=== PATIENT | female | born 2000 | race Caucasian/White ===

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

== ENCOUNTER → 2018-06-01 | Outpatient (CLI) | payer OTHER | END | disposition home or self-care (01) | LOC: RAD 13:50 | DX: N20.0 Calculus of kidney (principal); R10.9 Unspecified abdominal pain ==

== ENCOUNTER → 2019-01-06 | Outpatient (CLI) | payer OTHER | END | disposition home or self-care (01) | LOC: RAD 12:10 | DX: M25.561 Pain in right knee (principal) ==

== ENCOUNTER 2019-06-09 14:16 | Inpatient (IN) | payer OTHER ==
[~2019-06-09] VITALS: Ht 160 cm; Wt 52.8 kg
[2019-06-09 14:16] VITALS: BP 135/90
[2019-06-09 15:14] LABS: BASO % 0.7 % (0.0-1.0); EOS # 0.1 10*3/uL (0.0-0.4); EOS % 2.5 % (1.0-4.0); HEMATOCRIT 44.1 % (37.0-47.0); HEMOGLOBIN 15.1 g/dl (12.0-16.0); LYMPH # 1.5 10*3/uL (1.3-4.4); LYMPH % 34.3 % (27.0-41.0); MEAN CORPUSCULAR HGB 30.8 pg (27.0-31.0); MEAN CORPUSCULAR HGB CONC 34.2 g/dl (33.0-37.0); MEAN PLATELET VOLUME 9.2 fl (9.6-12.3); MONO # 0.4 10*3/uL (0.1-1.0); MONO % 9.2 % (3.0-9.0); NEUT # 2.3 10*3/uL (2.3-7.9); NEUT % 53.1 % (47.0-73.0); PLATELET COUNT AUTOMATED 213 10*3/uL (130-400); RED CELL DISTRI WIDTH 11.7 % (0-14.5); WHITE BLOOD COUNT 4.4 10*3/uL (4.8-10.8)
[2019-06-09 15:37] LABS: ALBUMIN 3.9 gm/dl (3.1-4.5); ALKALINE PHOSPHATASE 82 U/L (45-117); BUN 6 mg/dl (7-24); CHLORIDE 107 mmol/L (98-107); CREATININE 0.69 mg/dL (0.55-1.02); POTASSIUM 3.4 mmol/L (3.5-5.1); SGOT/AST 19 IU/L (3-35); SGPT/ALT 26 U/L (12-78); SODIUM 140 mmol/L (136-145); TOTAL PROTEIN 7.2 gm/dL (6.4-8.2)
[2019-06-09 15:43] LABS: BILIRUBIN NEGATIVE (NEGATIVE); BLOOD 3+ (NEGATIVE); CLARITY CLEAR (CLEAR); COLOR YELLOW (YELLOW); GLUCOSE NEGATIVE (NEGATIVE); KETONE NEGATIVE (NEGATIVE); LEUKO ESTERASE 1+ (NEGATIVE); NITRITE POSITIVE (NEGATIVE)
[2019-06-09 16:00] VITALS: BP 92/64
[2019-06-09 16:06] LABS: EPITHELIAL CELLS 41-50
[2019-06-09 16:07] LABS: BACTERIA 2+
--- NOTE | 2019-06-09 18:02 | NUR ---
PT STATES PAIN HAS DULLED BUT IT CONTINUES TO SHOOT DOWN RT LEG. RN NOTIFIED.
[2019-06-09 18:43] VITALS: BP 102/61
--- NOTE | 2019-06-09 18:44 | NUR ---
PATIENT STATES THAT SHE IS HAVING R LEG PAIN DR LAMAS AWARE.
--- NOTE | 2019-06-09 19:00 | NUR ---
PATIENT STATES THAT THE FIRST KETAMINE INFUSION DID NOT HELP THE PAIN.
--- NOTE | 2019-06-09 19:02 | NUR ---
BEDSIDE REPORT GIVEN TO SKY RN AT THIS TIME. ALO VELEZ TO TAKE PATIENT UPSTAIRS.
[2019-06-09 19:07] VITALS: BP 103/52
--- NOTE | 2019-06-09 19:07 | NUR ---
A 18, admitted to , under the services of MIGUELINA Shell DO with a diagnosis of INTRACTABLE BACK PAIN. Chief complaint is BACK PAIN. Patient arrived via ambulatory from ER. Monitor applied. Initial assessment completed. Vital signs taken and recorded. MIGUELINA SHELL DO notified of admission to the unit. Orders received. See assessment for past medical history, medications and allergies. Patient and/or family oriented to unit. [facility] visitation policy reviewed. Clothing/patient valuable form completed. SKY DOSHI
--- NOTE | 2019-06-09 19:44 | NUR ---
FLU VACCINE NOT GIVEN. ALREADY IMMUNIZED THIS SEASON.
--- NOTE | 2019-06-09 19:44 | NUR ---
MED REC UPDATED.
--- NOTE | 2019-06-09 19:56 | NUR ---
STILL IN PAIN DEPSITE MEDS GIVEN IN ED FOR BACK PAIN. PAIN RATED 10/10 STARTIGN IN MID RIGHT BACK AND "SHOOTING" TO TOES. PAIN IS ALSO DULL, ACHING, CONSTANT AND WORSENS WITH ANY MOVEMENT. NOTIFIED .
[2019-06-09] MEDS ORDERED: MELODETTA 24 F1 EACH PO (20:05)
--- NOTE | 2019-06-09 20:41 | NUR ---
IN TO SEE PT.
[2019-06-10] VITALS: BP 90/54
--- NOTE | 2019-06-10 01:15 | NUR ---
NORCO GIVEN PER PT REQUEST FOR RIGHT LOWER BACK PAIN THAT RADIATES DOWN THEIR RIGHT LEG RATED A 7/10. WILL CONTINUE TO MONITOR AND REASSESS.
[2019-06-10 06:37] LABS: BASO % 0.7 % (0.0-1.0); EOS # 0.2 10*3/uL (0.0-0.4); EOS % 3.9 % (1.0-4.0); HEMATOCRIT 36.7 % (37.0-47.0); HEMOGLOBIN 12.8 g/dl (12.0-16.0); LYMPH % 44.3 % (27.0-41.0); MEAN CELL VOLUME 89.5 fl (81.0-99.0); MEAN CORPUSCULAR HGB 31.2 pg (27.0-31.0); MEAN CORPUSCULAR HGB CONC 34.9 g/dl (33.0-37.0); MEAN PLATELET VOLUME 9.2 fl (9.6-12.3); MONO # 0.4 10*3/uL (0.1-1.0); MONO % 8.8 % (3.0-9.0); NEUT # 1.9 10*3/uL (2.3-7.9); NEUT % 41.9 % (47.0-73.0); PLATELET COUNT AUTOMATED 191 10*3/uL (130-400); RED CELL DISTRI WIDTH 11.4 % (0-14.5); WHITE BLOOD COUNT 4.6 10*3/uL (4.8-10.8)
[2019-06-10 06:46] LABS: ALBUMIN 3.2 gm/dl (3.1-4.5); ALKALINE PHOSPHATASE 69 U/L (45-117); BUN 5 mg/dl (7-24); CHLORIDE 108 mmol/L (98-107); CREATININE 0.59 mg/dL (0.55-1.02); POTASSIUM 3.1 mmol/L (3.5-5.1); SGOT/AST 16 IU/L (3-35); SGPT/ALT 22 U/L (12-78); SODIUM 139 mmol/L (136-145)
[2019-06-10 08:00] VITALS: BP 92/64
--- NOTE | 2019-06-10 08:44 | NUR ---
Occupational Therapy referral received and screen completed. Patient reports intermittent right back pain; increased with palpation in front and back and paraesthesia RLE. SHe is able to perform all ADLs and functional mobility in her room. Patient reports that the doctor suggests a neurologist consult. Patient also reports she has had kidney stones prior.Patient educated to inform hospitalist of the above. No further OT indicated at this time. Patient in agreement. Discharge OT referral. Denisha Valentine OTr/L
--- NOTE | 2019-06-10 09:00 | NUR ---
[employer] Equipment Repairer in to talk to patient. Patient states lives at home with parents. There are few steps in the home. Physician: audrey [facility]acy: [facility] Home health services: none Patient's level of ADLs: INDEPENDENT Patient has working utilities: all working DME: none Follow-up physician's appointment after d/c: will be made by hospitalist nurse director upon discharge Does patient want to access PORTAL?: no Discharge plan discussed with patient, she states she lives at home with parents, she is independent in adls and ambulation, works, drives, she states she will return home when medically stable and denies any home needs. ASHLEY BENITEZ
--- NOTE | 2019-06-10 09:14 | NUR ---
ZOFRAN GIVEN FOR C/O NUASEA. WOULD NOT SCAN. WILL MONITOR.
--- NOTE | 2019-06-10 09:31 | NUR ---
PHYSICAL THERAPY Physical therapy screen completed. Pt reports she is independent with ambulation and ADLs without an AD. She no longer has the "pins and needles" in her legs and is waiting to speak to the doctor about her multiple symptoms. Pt has no therapy needs at this time, however may benefit from therapy services later after she has been medically cleared per MD; as appropriate. Thank you Priya Del Castillo, PT, DPT
--- NOTE | 2019-06-10 10:15 | NUR ---
ZOFRAN EFFECTIVE PER PT.
[2019-06-10 12:00] VITALS: BP 90/42
--- NOTE | 2019-06-10 14:18 | NUR ---
TYLENOL GIVEN FOR C/O RT FLANK PAIN. RATES 5/10 ON PAIN SCALE. WILL MONITOR.
[2019-06-10 16:00] VITALS: BP 127/75
[2019-06-10 20:00] VITALS: BP 106/66
--- NOTE | 2019-06-10 20:26 | NUR ---
24 HR chart check completed.
--- NOTE | 2019-06-10 20:45 | NUR ---
RESTING IN BED. RESPIRATIONS EASY. LUNGS CLEAR. PULSE OX 97% RA. K-PAD PROVIDED TO C/O RIGHT FLANK/BACK PAIN. C/O URINARY FREQUENCY. CALL LIGHT WITHIN REACH.
--- NOTE | 2019-06-10 21:10 | NUR ---
dr walden contacted and updated on patient condition and urinary symptoms. iv fluids requested. dr walden to enter new orders
--- NOTE | 2019-06-10 21:38 | NUR ---
MEDICATED WITH NORCO PER PRN ORDER FOR COMPLAINTS OF RIGHTFLANK PAIN RATING A 5. CALL LIGHT WITHIN REACH. WILL MONITOR FOR EFEFCTIVENESS
--- NOTE | 2019-06-10 23:00 | NUR ---
MEDS EFFECTIVE. SLEEPING. RESPIRATIONS EASY.
[2019-06-11] VITALS: BP 106/66
--- NOTE | 2019-06-11 01:00 | NUR ---
SLEEPING. RESPIRATIONS EASY. VSS. IV FLUIDS INFUSING PER ORDER
--- NOTE | 2019-06-11 06:00 | NUR ---
MEDICATED WITH NORCO PER PRN ORDER FOR COMPLAINTS OF RIGHT FLANK/BACK PAIN RATING A 5. IV FLUIDS MAINTAINED. CALL LIGHT WITHIN REACH. WILL MONITOR
[2019-06-11 06:11] LABS: BASO % 0.8 % (0.0-1.0); EOS # 0.2 10*3/uL (0.0-0.4); EOS % 3.3 % (1.0-4.0); HEMATOCRIT 36.2 % (37.0-47.0); HEMOGLOBIN 12.8 g/dl (12.0-16.0); LYMPH % 39.5 % (27.0-41.0); MEAN CELL VOLUME 89.8 fl (81.0-99.0); MEAN CORPUSCULAR HGB 31.8 pg (27.0-31.0); MEAN CORPUSCULAR HGB CONC 35.4 g/dl (33.0-37.0); MEAN PLATELET VOLUME 9.4 fl (9.6-12.3); MONO # 0.4 10*3/uL (0.1-1.0); MONO % 8.4 % (3.0-9.0); NEUT # 2.5 10*3/uL (2.3-7.9); NEUT % 47.6 % (47.0-73.0); PLATELET COUNT AUTOMATED 198 10*3/uL (130-400); RED BLOOD COUNT 4.03 10*6/uL (4.10-5.10); RED CELL DISTRI WIDTH 11.3 % (0-14.5); WHITE BLOOD COUNT 5.1 10*3/uL (4.8-10.8)
[2019-06-11 06:36] LABS: ALBUMIN 3.2 gm/dl (3.1-4.5); ALKALINE PHOSPHATASE 68 U/L (45-117); BUN 6 mg/dl (7-24); CHLORIDE 111 mmol/L (98-107); CREATININE 0.67 mg/dL (0.55-1.02); POTASSIUM 3.7 mmol/L (3.5-5.1); SGOT/AST 15 IU/L (3-35); SGPT/ALT 21 U/L (12-78); SODIUM 141 mmol/L (136-145); TOTAL PROTEIN 5.7 gm/dL (6.4-8.2)
--- NOTE | 2019-06-11 07:10 | NUR ---
CARLOSCO EFFECTIVE PER PT. WILL MONITOR.
[2019-06-11 08:00] VITALS: BP 97/61
--- NOTE | 2019-06-11 08:04 | NUR ---
DULCOLAX GIVEN FOR C/O CONSTIPATION. WILL MONITOR.
[2019-06-11 12:00] VITALS: BP 113/62
--- NOTE | 2019-06-11 12:00 | NUR ---
NORCO GIVEN FOR C/O RT FLANK PAIN. RATES 5/10 ON PAIN SCALE. WILL MONITOR.
--- NOTE | 2019-06-11 13:00 | NUR ---
VERONICA EFFECTIVE PER PT.
[2019-06-11 16:00] VITALS: BP 107/68
[2019-06-11 20:00] VITALS: BP 104/83
--- NOTE | 2019-06-11 21:38 | NUR ---
PATIENT COMPLAINED OF BACK PAIN RATED 8/10. NORCO GIVEN PER PATIENT REQUEST. WILL ASSESS EFFECTIVENESS.
--- NOTE | 2019-06-11 22:30 | NUR ---
NORCO EFFECTIVE PER PATIENT.
[2019-06-12] VITALS: BP 112/66
--- NOTE | 2019-06-12 00:33 | NUR ---
24 HR chart check completed.
[2019-06-12 08:00] VITALS: BP 92/46
[2019-06-12 08:04] LABS: RHEUMATOID ARTHRITIS FACTOR <10.0 IU/mL (0.0-13.9)
[2019-06-12] MEDS ORDERED: LEVAQUIN750 M1 PO (09:47)
--- NOTE | 2019-06-12 10:16 | NUR ---
[facility] Discharge instructions reviewed with patient/family. Patient receptive and verbalizes understanding. Follow-up care arranged. Written instructions given to patient/family. KATELYN RAZO
[2019-06-13 16:06] LABS: ATYPICAL PANCA <1:20 titer (Neg:<1:20); CYTOPLASMIC (C-ANCA) <1:20 titer (Neg:<1:20)
== END 2019-06-12 11:48 | disposition home or self-care (01) | DRG 552 ==
LOC: ED 14:16 → 4E 18:31 → EDHOLD 18:31 → 4E 18:47
PROVIDERS: Emergency Medicine; Student in an Organized Health Care Education/Training Program; ADMIT Internal Medicine
DX: M62.830 Muscle spasm of back (principal); N39.0 Urinary tract infection, site not specified; M54.9 Dorsalgia, unspecified; E87.6 Hypokalemia; R00.0 Tachycardia, unspecified; R73.9 Hyperglycemia, unspecified; Z87.442 Personal history of urinary calculi; Z88.0 Allergy status to penicillin; Z88.1 Allergy status to other antibiotic agents; Z90.49 Acquired absence of other specified parts of digestive tract; Z83.3 Family history of diabetes mellitus; Z80.8 Family history of malignant neoplasm of other organs or systems; Z82.49 Family history of ischemic heart disease and other diseases of the circulatory system

== ENCOUNTER → 2019-06-22 | Outpatient (CLI) | payer OTHER ==
[~2019-06-22] MED LIST changes: +LEVAQUIN750 M1 PO; +MELODETTA 24 F1 EACH PO
== END | disposition home or self-care (01) ==
LOC: RAD 15:22
DX: N20.0 Calculus of kidney (principal); K59.09 Other constipation; K31.89 Other diseases of stomach and duodenum

== ENCOUNTER → 2019-12-03 | Outpatient (CLI) | payer OTHER | END | disposition home or self-care (01) | LOC: COVID19 09:13 | DX: U07.1 COVID-19 (principal) ==

== ENCOUNTER → 2020-07-04 | Outpatient (CLI) | payer OTHER | END | disposition home or self-care (01) | LOC: RAD 15:42 | PROVIDERS: ATTEND Chiropractor | DX: M48.02 Spinal stenosis, cervical region (principal) ==

== ENCOUNTER → 2021-02-07 | Outpatient (CLI) | payer BC | END | disposition home or self-care (01) | LOC: LAB 17:02 | PROVIDERS: ATTEND Family Medicine | DX: R19.7 Diarrhea, unspecified (principal) ==

== ENCOUNTER 2022-10-27 13:14 | Emergency (ER) | payer OTHER ==
[~2022-10-27] VITALS: Wt 64.4 kg
[2022-10-27 13:32] VITALS: BP 124/78
[2022-10-27 15:16] LABS: BASO % 0.7 % (0.0-1.0); EOS # 0.1 10*3/uL (0.0-0.4); EOS % 2.2 % (1.0-4.0); LYMPH # 1.2 10*3/uL (1.3-4.4); LYMPH % 27.9 % (27.0-41.0); MEAN CELL VOLUME 86.4 fl (81.0-99.0); MEAN CORPUSCULAR HGB 29.3 pg (27.0-31.0); MEAN CORPUSCULAR HGB CONC 33.9 g/dl (33.0-37.0); MEAN PLATELET VOLUME 8.9 fl (9.6-12.3); MONO # 0.6 10*3/uL (0.1-1.0); MONO % 13.7 % (3.0-9.0); NEUT # 2.3 10*3/uL (2.3-7.9); PLATELET COUNT AUTOMATED 193 10*3/uL (130-400); RED BLOOD COUNT 5.09 10*6/uL (4.10-5.10); RED CELL DISTRI WIDTH 11.9 % (0-14.5); WHITE BLOOD COUNT 4.2 10*3/uL (4.8-10.8)
[2022-10-27 15:37] LABS: ALKALINE PHOSPHATASE 99 U/L (46-116); BUN 5 mg/dl (9-23); CHLORIDE 103 mmol/L (98-107); LIPASE 60 U/L (12-53); POTASSIUM 3.7 mmol/L (3.4-5.1); SGPT/ALT 16 U/L (10-49); TOTAL PROTEIN 7.4 gm/dL (6.0-8.0)
[2022-10-27 16:36] LABS: B-hCG (QUALITATIVE) NEGATIVE (NEGATIVE)
[2022-10-27] MEDS ORDERED: REGLAN5 MG PO (19:28)
[2022-10-27] MEDS ORDERED: TOPCARE OMEPRAZ20 MG PO (19:28)
== END 2022-10-27 19:37 | disposition home or self-care (01) ==
LOC: ED 13:14
PROVIDERS: Physician Assistant
DX: K44.9 Diaphragmatic hernia without obstruction or gangrene (principal); Z88.0 Allergy status to penicillin; Z88.1 Allergy status to other antibiotic agents; Z79.899 Other long term (current) drug therapy; Z90.49 Acquired absence of other specified parts of digestive tract; Z90.89 Acquired absence of other organs

== ENCOUNTER → 2023-08-20 | Day surgery (SDC) | payer OTHER ==
[~2023-08-20] VITALS: Ht 160 cm; Wt 68.0 kg
[~2023-08-20] MED LIST changes: +AMITRIPTYLINE50 MG PO; +CELEXA20 MG PO; +CYCLOBENZAPRINE5 M3 PO; +DOXEPIN HCL25 MG PO; +LEVOFLOXACIN750 M2 PO; +OCUFLOX 0.3% 5 M5 ML OPH; +REGLAN5 MG PO; +TOPCARE OMEPRAZ20 MG PO; +WELLBUTRIN SR100 MG PO
[2023-08-20 07:25] VITALS: BP 107/56
[2023-08-20 08:21] VITALS: BP 120/57
[2023-08-20 08:36] VITALS: BP 111/60
[2023-08-20 08:51] VITALS: BP 91/51
[2023-08-20 09:06] VITALS: BP 98/56
[2023-08-20 09:17] VITALS: BP 102/67
== END | disposition home or self-care (01) ==
LOC: SDC 08-17 08:00
PROVIDERS: ATTEND Specialist
DX: H65.493 Other chronic nonsuppurative otitis media, bilateral (principal); G43.909 Migraine, unspecified, not intractable, without status migrainosus; K21.9 Gastro-esophageal reflux disease without esophagitis; F41.9 Anxiety disorder, unspecified; J06.9 Acute upper respiratory infection, unspecified; Z98.818 Other dental procedure status; Z98.890 Other specified postprocedural states; Z80.0 Family history of malignant neoplasm of digestive organs

== ENCOUNTER 2023-08-22 16:10 | Emergency (ER) | payer OTHER ==
[~2023-08-22] VITALS: Ht 160 cm; Wt 68.0 kg
[~2023-08-22 16:10] MED LIST changes: -DOXEPIN HCL25 MG PO; -LEVOFLOXACIN750 M2 PO
[2023-08-22 16:21] VITALS: BP 138/75
[2023-08-22] MEDS ORDERED: DOXEPIN HCL25 MG PO (16:22)
[2023-08-22] MEDS ORDERED: LEVOFLOXACIN750 M2 PO (16:40)
== END 2023-08-22 16:49 | disposition home or self-care (01) ==
LOC: ED 16:10
DX: H66.92 Otitis media, unspecified, left ear (principal); H60.92 Unspecified otitis externa, left ear; F41.9 Anxiety disorder, unspecified; Z87.442 Personal history of urinary calculi; K21.9 Gastro-esophageal reflux disease without esophagitis; Z88.0 Allergy status to penicillin; Z88.1 Allergy status to other antibiotic agents; Z90.49 Acquired absence of other specified parts of digestive tract; Z90.89 Acquired absence of other organs; Z98.890 Other specified postprocedural states

== ENCOUNTER 2023-09-08 12:42 | Emergency (ER) | payer OTHER ==
[~2023-09-08] VITALS: Ht 160 cm; Wt 68.0 kg
[~2023-09-08 12:42] MED LIST changes: +DOXEPIN HCL25 MG PO; +LEVOFLOXACIN750 M2 PO
[2023-09-08 12:54] VITALS: BP 97/71
[2023-09-08 13:22] LABS: BASO % 0.3 % (0.0-1.0); EOS % 0.6 % (1.0-4.0); HEMATOCRIT 39.7 % (37.0-47.0); LYMPH # 0.6 10*3/uL (1.3-4.4); LYMPH % 8.7 % (27.0-41.0); MEAN CORPUSCULAR HGB 28.9 pg (27.0-31.0); MEAN CORPUSCULAR HGB CONC 32.5 g/dl (33.0-37.0); MEAN PLATELET VOLUME 9.1 fl (9.6-12.3); MONO # 0.4 10*3/uL (0.1-1.0); MONO % 5.4 % (3.0-9.0); NEUT # 5.5 10*3/uL (2.3-7.9); NEUT % 84.7 % (47.0-73.0); PLATELET COUNT AUTOMATED 205 10*3/uL (130-400); RED BLOOD COUNT 4.46 10*6/uL (4.10-5.10); RED CELL DISTRI WIDTH 11.9 % (0-14.5); WHITE BLOOD COUNT 6.5 10*3/uL (4.8-10.8)
[2023-09-08 13:46] LABS: ALKALINE PHOSPHATASE 119 U/L (46-116); BUN 7 mg/dl (9-23); CHLORIDE 107 mmol/L (98-107); LIPASE 50 U/L (12-53); POTASSIUM 3.4 mmol/L (3.4-5.1); SGPT/ALT 15 U/L (5-49)
[2023-09-08 13:47] LABS: B-hCG (QUALITATIVE) NEGATIVE (NEGATIVE); ETHYL ALCOHOL < 3.0 mg/dl (<3)
[2023-09-08 15:29] LABS: BILIRUBIN Negative (Negative); BLOOD Trace-Lysed (Negative); CLARITY Clear (Clear); COLOR Yellow (Yellow); GLUCOSE Negative (Negative); KETONE 1+ (Negative); LEUKO ESTERASE Negative (Negative); NITRITE Negative (Negative); PH 7.5 (4.5-8.0); SPECIFIC GRAVITY >= 1.030 (1.001-1.030)
[2023-09-08 15:41] LABS: BACTERIA 1+
[2023-09-08] MEDS ORDERED: ONDANSETRON4 MG SL (16:49)
== END 2023-09-08 16:57 | disposition home or self-care (01) ==
LOC: ED 12:42
PROVIDERS: Family Medicine
DX: K52.9 Noninfective gastroenteritis and colitis, unspecified (principal); R11.2 Nausea with vomiting, unspecified; F41.9 Anxiety disorder, unspecified; K21.9 Gastro-esophageal reflux disease without esophagitis; Z87.442 Personal history of urinary calculi; Z88.0 Allergy status to penicillin; Z88.1 Allergy status to other antibiotic agents; Z79.899 Other long term (current) drug therapy; Z90.49 Acquired absence of other specified parts of digestive tract; Z90.89 Acquired absence of other organs; Z98.890 Other specified postprocedural states

== ENCOUNTER → 2024-10-07 | Outpatient (CLI) | payer OTHER ==
[~2024-10-07] MED LIST changes: +ONDANSETRON4 MG SL
[2024-10-07 09:25] LABS: BASO % 0.5 % (0.0-1.0); EOS # 0.1 10*3/uL (0.0-0.4); EOS % 1.4 % (1.0-4.0); MEAN CELL VOLUME 91.3 fl (81.0-99.0); MEAN CORPUSCULAR HGB 30.7 pg (27.0-31.0); MEAN CORPUSCULAR HGB CONC 33.7 g/dl (33.0-37.0); MEAN PLATELET VOLUME 9.8 fl (9.6-12.3); MONO # 0.3 10*3/uL (0.1-1.0); MONO % 8.5 % (3.0-9.0); NEUT # 2.1 10*3/uL (2.3-7.9); NEUT % 57.8 % (47.0-73.0); PLATELET COUNT AUTOMATED 234 10*3/uL (130-400); RED BLOOD COUNT 4.49 10*6/uL (4.10-5.10); RED CELL DISTRI WIDTH 12.1 % (0-14.5); WHITE BLOOD COUNT 3.7 10*3/uL (4.8-10.8)
[2024-10-07 09:51] LABS: ALKALINE PHOSPHATASE 84 U/L (46-116); CHLORIDE 107 mmol/L (98-107); FREE T4 1.25 ng/dl (0.89-1.76); POTASSIUM 3.7 mmol/L (3.4-5.1); SGPT/ALT 23 U/L (5-49); TOTAL PROTEIN 6.8 gm/dL (6.0-8.0)
[2024-10-07 09:52] LABS: BUN < 5 mg/dl (9-23)
== END | disposition home or self-care (01) ==
LOC: LAB 08:17
PROVIDERS: ATTEND Nurse Practitioner Family
DX: R23.3 Spontaneous ecchymoses (principal)

== ENCOUNTER → 2025-01-27 | Outpatient (CLI) | payer OTHER ==
[2025-01-27 09:41] LABS: BASO % 0.9 % (0.0-1.0); EOS # 0.2 10*3/uL (0.0-0.4); EOS % 3.9 % (1.0-4.0); HEMATOCRIT 40.8 % (37.0-47.0); MEAN CELL VOLUME 91.7 fl (81.0-99.0); MEAN CORPUSCULAR HGB 30.8 pg (27.0-31.0); MEAN CORPUSCULAR HGB CONC 33.6 g/dl (33.0-37.0); MEAN PLATELET VOLUME 9.2 fl (9.6-12.3); MONO # 0.3 10*3/uL (0.1-1.0); MONO % 5.4 % (3.0-9.0); NEUT # 2.8 10*3/uL (2.3-7.9); NEUT % 59.9 % (47.0-73.0); PLATELET COUNT AUTOMATED 243 10*3/uL (130-400); RED BLOOD COUNT 4.45 10*6/uL (4.10-5.10); RED CELL DISTRI WIDTH 11.8 % (0-14.5); WHITE BLOOD COUNT 4.6 10*3/uL (4.8-10.8)
[2025-01-27 10:10] LABS: ALKALINE PHOSPHATASE 113 U/L (46-116); BUN 8 mg/dl (9-23); CHLORIDE 107 mmol/L (98-107); POTASSIUM 3.8 mmol/L (3.4-5.1); SGPT/ALT 17 U/L (5-49); TOTAL PROTEIN 6.8 gm/dL (6.0-8.0)
== END | disposition home or self-care (01) ==
LOC: LAB 09:20
PROVIDERS: ATTEND Nurse Practitioner Women's Health
DX: N92.0 Excessive and frequent menstruation with regular cycle (principal); L68.0 Hirsutism